=== PATIENT | male | born 1990 | race Caucasian/White ===

== ENCOUNTER → 2017-09-19 | Day surgery (SDC) | payer OTHER ==
[~2017-09-19] MED LIST: BUPIVACAINE HCL PF 0.75% 30 ML VIAL; LACTATED RINGER'S 1000 ML INJ 1,000 ML; LIDOCAINE 1.5%/EPINEPHrine 1:200,000 PF SOLN 30 ML AMP; MIDAZOLAM HCL 5 MG/ML VIAL (1 ML); ONDANSETRON HCL 4 MG/2 ML VIAL IV PUSH; PROPOFOL 200 MG/20 ML AMP IV; ceFAZolin 2 GM PREMIX 50 ML
== END | disposition home or self-care (01) ==
LOC: ESDC 11:12
DX: S43.084A Other dislocation of right shoulder joint, initial encounter (principal); M25.311 Other instability, right shoulder
CPT/HCPCS: 01630; 76942